=== PATIENT | male | born 1995 | race Caucasian/White ===

== ENCOUNTER 2017-05-13 15:44 | Inpatient (IN) | payer OTHER ==
[~2017-05-13] VITALS: Ht 185.4 cm; Wt 64.5 kg
[2017-05-13 15:40] VITALS: BP 141/91; PULSE 112; RESP 16; TEMP 98.2; O2SAT 98
[~2017-05-13 15:44] MED LIST: LISD40 PO; QUET1TAB8 PO
[2017-05-13] MEDS ORDERED: MAGNESIUM HYDROXIDE SUSP 30 ML CUP PO PRN (16:15)
[2017-05-13] MEDS ORDERED: ACETAMINOPHEN 325 MG TAB PO PRN (16:15)
[2017-05-13] MEDS ORDERED: BENZTROPINE MESYLATE 2 MG/2 ML VIAL IM PRN (16:15)
[2017-05-13] MEDS ORDERED: ALUMINUM/MAGNESIUM/SIMETH 30 ML CUP PO PRN (16:15)
[2017-05-13] MEDS ORDERED: LORazepam 2 MG/ML VIAL IM PRN (16:15)
[2017-05-13] MEDS ORDERED: LORazepam 1 MG TAB PO PRN (16:15)
[2017-05-13] MEDS ORDERED: BENZTROPINE MESYLATE 1 MG TAB PO PRN (16:15)
[2017-05-13 18:19] VITALS: BP 141/91; PULSE 112; RESP 16; TEMP 98.2; O2SAT 98
[2017-05-13] MEDS ORDERED: diphenhydrAMINE HCL 50 MG CAP PO PRN (21:00)
[2017-05-14 06:37] VITALS: BP 111/62; PULSE 85; RESP 18; TEMP 99.2; O2SAT 99
[2017-05-14] MEDS ORDERED: REMOVE OLD PATCH T-DERMAL SCH (09:00)
[2017-05-14] MEDS ORDERED: NICOTINE 21 MG/24 HR PATCH T-DERMAL SCH (09:00)
[2017-05-14 10:21] LABS: ANION GAP 10 MEQ/L (5-15); BICARBONATE 24.8 MEQ/L (21.0-32.0); BLOOD UREA NITROGEN 14 MG/DL (7-18); CHLORIDE 103 MEQ/L (98-107); GLOMERULAR FILTRATION RATE 128 ML/MIN (>89); POTASSIUM 3.9 MEQ/L (3.5-5.1); SODIUM (NA) 138 MEQ/L (136-145)
[2017-05-14 10:28] LABS: HDL CHOLESTEROL 31.1 MG/DL (40.0-60.0); LDL CHOLESTEROL 77 MG/DL (0-99)
[2017-05-14 14:36] VITALS: TEMP 98.9
--- NOTE | 2017-05-14 15:21 | HHI.HP ---
Provisional Diagnosis Admission Date May 13, 2017 at 15:44 [place]. Adjustment disorder with mixed disturbances of emotion and conduct F 43.25 Certification of Person's Competence To Provide Express and Informed Consent I have personally examined Ernesto Loving , a person being served at [facility] on, May 14, 2017 15:03. Express and informed consent means consent voluntarily given in writing, by a competent person, after sufficient explanation and disclosure of the subject matter involved to enable the person to make a knowing and willful decision without any element of force, fraud, deceit, duress, or other form of constraint or coercion. This person is 18 years of age or older, is not now known to be incompetent to consent to treatment with a guardian advocate, and does not have a health care surrogate or proxy currently making medical treatment decisions. I have found this person to be one of the following: [xxx] Competent to provide express and informed consent, as defined above, for voluntary admission to this facility and is competent to provide express and informed consent for treatment. He/she has the consistent capacity to make well reasoned, willful, and knowing decisions concerning his or her medical or mental health treatment. The person fully and consistently understands the purpose of the admission for examination/placement and is fully capable of personally exercising all rights assured under [place] Incompetent to provide express and informed consent to voluntary admission, and this is incompetent to provide express and informed consent to treatment. The person must be transferred to involuntary status and a petition for a guardian advocate filed with the Circuit Court. [] Refusing to provide express and informed consent to voluntary admission but is competent to provide express and informed consent for treatment. The person must be discharged or transferred to involuntary status. Form shall be completed within 24 hours of a person's arrival at the receiving facility and filed in the clinical record of each person: 1. Admitted on a voluntary basis 2. Permitted to provide express and informed consent to his/her own treatment 3. Allowed to transfer from involuntary to voluntary status 4. Prior to permitting a person to consent to his or her own treatment after having been previously found incompetent to consent to treatment. History of Present Illness Capacity: Has Capacity HPI Patient is a 21-year-old white male who comes here under Jones act by the [facility]'s office dated 05/10/17 at 022 7 AM that document reviewed stated Ernesto took 3 bottles of Vyvanse, Seroquel. Patient was brought to [facility] included there treated there medically cleared at that facility then transported here under the Jones act for further assessment. Patient seen with nurse Antonia. He is alert oriented thin slender somewhat slight build but all 21-year-old white male is calm cooperative stating he is bisexual and the day of the overdose she was on social media talked is some type of a redneck group who became aggressive towards him threatening him with bodily harm over the Internet this appears she is causing him distress leading to his impulsive behavior. He now denies suicidality homicidality voices or visions. States his talked with his mother his agreed to help of maintain some stability especially with his use of the social media that he has signed off all his social media sites is willing to allow his mother to monitor any use of computer that he does this attempt to get his GED from [employer]. Acknowledges history of ADHD that he sees a psychiatrist for through [facility]. He lives with his mother stepfather sister sister's and the sister [id number] child. He says they all get along well together. Review of our EMR shows an overdose of admission here in 2014 and her visit here in 2012. I then called the patient's mother whose name is Jennifer at [phone] she confirms the patient sexual identity issues, his misuse in excess use is social media. She also verified their agreement that he would remain off of social media allow her to monitor his use of the computer. Also to monitor medication use. Mother undergoes conditions feels safe with her son coming home today. He feels safe coming home today. Able to contract with me to do no harm. Patient sees a doctorsanz through [facility]. Will have our finished goods planner attempt to arrange for an appointment with this young man for tomorrow or as soon as possible after that. Thus patient will be discharged today the been no Rx by me follow-up with psychiatrist through [facility] Review of Systems Constitutional: DENIES: Diaphoretic episodes, Fatigue, Fever, Weight gain, Weight loss, Chills, Dizziness, Change in appetite, Night Sweats Endocrine: DENIES: Heat/cold intolerance, Polydipsia, Polyuria, Polyphagia Eyes: DENIES: Blurred vision, Diplopia, Eye inflammation, Eye pain, Vision loss , Photosensitivity, Double Vision Ears, nose, mouth, throat: DENIES: Tinnitus, Hearing loss, Vertigo, Nasal discharge, Oral lesions, Throat pain, Hoarseness, Ear Pain, Running Nose, Epistaxis, Sinus Pain, Toothache, Odynophagia Respiratory: DENIES: Apneas, Cough, Snoring, Wheezing, Hemoptysis, Sputum production, Shortness of breath Cardiovascular: DENIES: Chest pain, Palpitations, Syncope, Dyspnea on Exertion , PND, Lower Extremity Edema, Orthopnea, Claudication Gastrointestinal: DENIES: Abdominal pain, Black stools, Bloody stools, Constipation, Diarrhea, Nausea, Vomiting, Difficulty Swallowing, Anorexia Genitourinary: DENIES: Sexual dysfunction, Urinary frequency, Urinary incontinence, Urgency, Hematuria, Dysuria, Nocturia, Penile Discharge, Testicular Pain, Testicular Swelling Musculoskeletal: DENIES: Joint pain, Muscle aches, Stiffness, Joint Swelling, Back pain, Neck pain Integumentary: DENIES: Abnormal pigmentation, Nail changes, Pruritus, Rash Hematologic/lymphatic: DENIES: Bruising, Lymphadenopathy Neurologic: DENIES: Abnormal gait, Headache, Localized weakness, Paresthesias, Seizures, Speech Problems, Tremor, Poor Balance Psychiatric: COMPLAINS OF: Suicidal Ideation (did overdose on his prescription medications of Vyvanse and Seroquel now denies suicidality, able contracted to no harm) Past Psych History Psychological trauma history A she states she has been bullied in the past related to his sexual preference both physically and over social media Violence risk - others (6 mos) Low Violence risk - self (6 mos) Did just overdosed on prescription medication Substance Abuse History Drugs/Alcohol past 12 months Denies Past Family Social History Coded Allergies: Abilify (Verified Allergy, Severe, TONGUE SWELLS, CAN'T BREATHE, SEIZURES. , 11/19/16) Ritalin (Verified Adverse Reaction, Severe, Seizures, 11/19/16) Past Medical History Patient medically cleared through [facility] Active Scripts Lisdexamfetamine (Vyvanse)40 Mg Cap40 Mg PO DAILY #30 CAP Ref 0 dec 12 2016 Prov:Helen Osorio MD 11/19/16 Lisdexamfetamine (Vyvanse)40 Mg Cap40 Mg PO DAILY #30 CAP Ref 0 Prov:Helen Osorio MD 11/19/16 Quetiapine 100 Mg Row549 Mg PO 1/2 hs #15 TAB Ref 2 1/2 AT HS Prov:Helen Osorio MD 11/19/16 Reported Medications Lisdexamfetamine (Vyvanse)40 Mg Cap40 Mg PO DAILY #30 CAP Ref 0 01/12/17 Lisdexamfetamine (Vyvanse)40 Mg Cap40 Mg PO DAILY #30 CAP Ref 0 01/12/17 Current Medications Medications (Trade) Dose Ordered Sig/Estephania Route Start Time Stop Time Status Last Admin (Ativan) 1 mg Q6H PRN PO 05/13/17 16:15 (Ativan Inj) 1 mg Q6H PRN IM 05/13/17 16:15 (Benadryl) 50 mg HS PRN PO 05/13/17 21:00 05/13/17 21:05 (Tylenol) 650 mg Q4H PRN PO 05/13/17 16:15 (Milk Of Magnesia Liq) 30 ml DAILY PRN PO 05/13/17 16:15 (Mag-Al Plus Susp Liq) 30 ml Q6H PRN PO 05/13/17 16:15 (Cogentin) 1 mg Q12H PRN PO 05/13/17 16:15 (Cogentin Inj) 1 mg Q12H PRN IM 05/13/17 16:15 Family History Issue lives with parents sister sister's and 15 month old niece Social History Patient is misuse been abused social media Patient's Strengths (min. 2) Patient verbal [facility]'s cooperative Physical Exam Patient seen screened and cleared through [facility] at this time patient talking with us calmly in the gama these in no acute distress , is in no pressure distress neck is supple no complaints abdominal pain patient with all 4 extremities without difficulty no abnormal motor movements noted Vital Signs Vital Signs Date Time Temp Pulse Resp B/P Pulse Ox O2 Delivery O2 Flow Rate FiO2 05/14/17 14:36 98.9 05/14/17 06:37 85 18 111/62 99 Mental Status Examination Alert oriented thin slice slender tall white male calm cooperative with fair eye contact Appearance Clean the Speech: Unremarkable, Tangential (mildly) Orientation: x3 Memory: Unremarkable Thought Process: Logical, Organized Thought Content: Unremarkable Language Fair Fund of Knowledge Fair Hallucination Type: None (denies) Attention and Concentration: Other (they are) Suicidal Ideation: No (denies at this time but had suicidal gesture with overdose of prescription medications 4 days ago) Previous Suicide Attempts: No Homicidal Ideation: No Previous Homicide Attempts: No Insight: Poor Judgment: Poor Affect: Other (good range intensity) Mood: Euthymic Motor Activity: Normal gait Assessment & Plan Problem List: (1) Adjustment disorder with mixed disturbance of emotions and conduct ICD Code: F43.25 Assessment & Plan Estimated LOS: days patient does not meet Jones criteria will lift Jones act. Patient to be discharged to his family today no Rx by me. Patient to follow-up with her psychiatrist through [facility] as soon as possible Discharge Planning See above Request HC Surrog/Guard Advoc?: No Sloan Toribio MD May 14, 2017 15:21
--- NOTE | 2017-05-14 15:28 | HHI.DS ---
Psychiatry Discharge Summary Inpatient Psychiatric care?: Yes Advance Directive: No Reason Not Provided: NOT INTERESTED Mental Health AdvanceDirective: No Health Care Proxy: No Admission Admission Date May 13, 2017 at 15:44 Admission Diagnosis: (1) Adjustment disorder with mixed disturbance of emotions and conduct ICD Code: F43.25 Brief History Patient is a 21-year-old white male who comes here under Jones act by the [facility]'s office dated 05/10/17 at 022 7 AM that document reviewed stated Ernesto took 3 bottles of Vyvanse, Seroquel. Patient was brought to [facility] included there treated there medically cleared at that facility then transported here under the Jones act for further assessment. Patient seen with nurse Antonia. He is alert oriented thin slender somewhat slight build but all 21-year-old white male is calm cooperative stating he is bisexual and the day of the overdose she was on social media talked is some type of a redneck group who became aggressive towards him threatening him with bodily harm over the Internet this appears she is causing him distress leading to his impulsive behavior. He now denies suicidality homicidality voices or visions. States his talked with his mother his agreed to help of maintain some stability especially with his use of the social media that he has signed off all his social media sites is willing to allow his mother to monitor any use of computer that he does this attempt to get his GED from [employer]. Acknowledges history of ADHD that he sees a psychiatrist for through [facility]. He lives with his mother stepfather sister sister's and the sister [id number] child. He says they all get along well together. Review of our EMR shows an overdose of admission here in 2014 and her visit here in 2012. I then called the patient's mother whose name is Jennifer at [phone] she confirms the patient sexual identity issues, his misuse in excess use is social media. She also verified their agreement that he would remain off of social media allow her to monitor his use of the computer. Also to monitor medication use. Mother undergoes conditions feels safe with her son coming home today. He feels safe coming home today. Able to contract with me to do no harm. Patient sees a doctorsanz through [facility]. Will have our program planner attempt to arrange for an appointment with this young man for tomorrow or as soon as possible after that. Thus patient will be discharged today the been no Rx by me follow-up with psychiatrist through [facility] Tobacco Use In Past 30 Days: No Tobacco Past 30 Days Alcohol Use: Never Hospital Course Please see note dictated under brief history. Will lift Jones act patient does not meet criteria for inpatient stay, patient to be discharged to his family, no Rx by me, follow-up private psychiatrist through [facility] Results Blood Pressure 111 / 62 Vital Signs Date Time Temp Pulse Resp B/P Pulse Ox O2 Delivery O2 Flow Rate FiO2 05/14/17 14:36 98.9 05/14/17 06:37 85 18 111/62 99 Laboratory Tests Test 05/14/17 09:35 HDL Cholesterol 31.1 MG/DL (40.0-60.0) Laboratory Results Test 05/14/17 09:35 Triglycerides Level 93 MG/DL (42-150) Cholesterol Level 127 MG/DL (120-200) LDL Cholesterol 77 MG/DL (0-99) HDL Cholesterol 31.1 MG/DL (40.0-60.0) Summary of Procedures None done Pending results at discharge: No Medications # of Antipsychotic meds at D/C: 0 Approp Antipsych med options 1 - Minimum of three failed multiple trials of monotherapy. 2 - Documented plan to taper to monotherapy due to previous use of multiple meds OR cross-taper in progress at D/C. 3 - Documentation of augmentation of Clozapine. 4 - Justification other than those listed in allowable values 1-3, document here : Discharge Discharge Date: May 14, 2017 Discharge Diagnosis: (1) Adjustment disorder with mixed disturbance of emotions and conduct Diagnosis: Principal ICD Code: F43.25 Mental Status Exam at Disch Alert oriented thin slender white male, he is normoactive, mood is euthymic with good range intensity of his affect, speech rate and rhythm are within normal limits though no formal thought disorders. No auditory or visual hallucinations. No delusions. Insight and judgment is poor to fair. Cognition grossly intact Pt Condition on Discharge: Stable Discharge Disposition: Discharge Home Discharge Instructions Diet Instructions: As Tolerated, No Restrictions Activities you can perform: Regular-No Restrictions Scheduled Appointment: dr amezcua thru [facility] Discharge Time > 30 minutes Discharge/Advance Care Plan Health Problems: (1) Adjustment disorder with mixed disturbance of emotions and conduct Goals to promote your health * To prevent worsening of your condition and complications * To maintain your health at the optimal level Directions to meet your goals Take your medications as prescribed Follow your dietary instruction Follow activity as directed Keep your appointments as scheduled Take your immunizations and boosters as scheduled If your symptoms worsen call your PCP, if no PCP go to Urgent Care Center or Emergency Room For 18/05 questions related to your inpatient stay or results of tests pending at discharge, please contact Dr. Sloan Toribio at Smoking is Dangerous to Your Health. Avoid second hand smoking Sloan Toribio MD May 14, 2017 15:28
[2017-05-14 18:00] LABS: HEMOGLOBIN A1b 0.8 %; HEMOGLOBIN Ao 86.9 %; HEMOGLOBIN F 0.9 %; HEMOGLOBIN LA1C 1.7 %; HEMOGLOBIN P3 3.2 %
== END 2017-05-14 16:25 | disposition home or self-care (01) | DRG 882 ==
LOC: H270 15:44
PROVIDERS: ADMIT Psychiatry & Neurology Psychiatry; ATTEND Psychiatry & Neurology Psychiatry
DX: F43.25 Adjustment disorder with mixed disturbance of emotions and conduct (principal); F90.9 Attention-deficit hyperactivity disorder, unspecified type; Z91.5 Personal history of self-harm
CPT/HCPCS: 80048; 80061; 83036; Q0163